=== PATIENT | male | born 1955 | race Caucasian/White ===

== ENCOUNTER 2017-06-03 09:22 | Emergency (ER) | payer SELFPAY ==
--- NOTE | 2017-06-03 10:19 | ERNOTE ---
Medical Problem HPI - Narrative Date of Service: 06/03/17 - General Chief Complaint: General Assessment Time Seen by Provider: 06/03/17 10:11 Source: patient Exam Limitations: no limitations - Immun/Allergies/Home Medications Immunizations: IMMUNIZATION HX Immunizations Up to Date Yes Allergies/Adverse Reactions: Allergies codeine [Codeine] Allergy (Intermediate, Verified 06/03/17 09:44) Nausea Home Medications: HOME MEDICATIONS NK [No Home Medication] 09/21/12 [Last Taken Unknown] - History of Present History Narrative: Patient presents to the ED for shakiness. He relates that this morning he was at work and started to feel very shaky. He then tells me he started to feel "anxious". No CP ro SOB> No abdominal pain. He has a sense of generalized weakness. No focal weakness. no HOLM. He relates he had this many years ago and had a work up and was told it was stress. He now feels much improved. States he did not eat break fast this morning but normally does not. Timing: other - nearly resolved Severity: mild Modifying Factors - (Improves): Present: other - nothing Modifying Factors - (Worsens): Present: other - nothing Review of Systems - Review of Systems Constitutional: Absent: fever EYE: Absent: vision changes ENT: Absent: sore throat Respiratory: Absent: shortness of breath Cardiology: Absent: chest pain Gastrointestinal/Abdominal: Absent: abdominal pain Genitourinary: Absent: dysuria Musculoskeletal: Present: no symptoms reported Skin: Present: no symptoms reported Neurological: Present: other - no focal N/T/W. - Patient's Past Medical History Patient History - Medical: No pertinent hx Patient History - Cardiac/Respiratory: No pertinent hx Patient History - Cancer: No Hx of Cancer Patient History - Surgical Procedures: T & A - Social History Smoking Status: Current every day smoker Have you smoked in the past 12 months: Yes - Immunizations Immunizations Up to Date: Yes Physical Exam - Physical Exam General Appearance: Present: alert, no apparent distress Head Exam: Present: normal inspection, no evidence of injury Eye Exam: Normal inspection: bilateral, PERRL: bilateral Ears, Nose, Throat: Present: normal ENT inspection Neck: Present: normal inspection Respiratory: Present: no respiratory distress, normal breath sounds, no accessory muscle use, lungs clear Cardiovascular/Chest: Present: regular rate, rhythm, normal peripheral pulses Gastrointestinal/Abdominal: Present: normal bowel sounds, nontender, nondistended, soft Back Exam: Present: normal range of motion Extremity Exam: Present: normal range of motion Neurological Exam: Present: alert, oriented, normal mood/affect, no motor/ sensory deficits, 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 Absent: facial droop, motor weakness Skin Exam: Present: normal color, warm/dry ED Progress - Vital Signs Patient's Vital Signs:: I have reviewed the patient's vital signs. Vital Signs: Vital Signs 06/03/17 09:41 Temperature 36.8 C Pulse Rate 73 Respiratory 14 Rate Blood Pressure 154/92 O2 Sat by Pulse 100 Oximetry - Progress/Reassessment Chief Complaint: General Assessment Progress Note-Subjective: 06/03/17 10:17 I recommended a full work-up, he understands risks and benefits but declines this. I recommend labs, EKG and imaging but he requests to sign out AMA rather than have this testing. I stressed that he could return at any time if he changes his mind about this or if he worsens in any way. He clearly understands he is leaving against my medical advice. Departure Clinical Impression: Shakiness - Departure Disposition: Against medical advice Condition: Undetermined Additional Instructions: You are leaving against medical advice. Return immediately if you change your mind about having the testing I have recommended, develop pain, worsening symptoms or if your condition worsens or changes in ANY way. Please call the [facility] for a follow-up appointment.
[2017-06-03 11:58] VITALS: BP 127/75
== END 2017-06-03 10:27 | disposition left against medical advice (07) ==
LOC: ER 09:22
DX: R53.1 Weakness (principal); Z53.21 Procedure and treatment not carried out due to patient leaving prior to being seen by health care provider